=== PATIENT | male | born 1960 | race American Indian/Alaskan Native ===

== ENCOUNTER 2017-11-18 09:18 | Outpatient (CLI) | payer MEDICARE ==
--- NOTE | 2017-11-18 17:11 | XRay Report ---
FINAL REPORT EXAM: XR KNEE BILAT 3V HISTORY: KNEE PAIN TECHNIQUE: AP, tunnel, oblique, and lateral views of each knee PRIORS: None. FINDINGS: No acute fracture or dislocation is seen. The soft tissues demonstrate small suprapatellar joint effusions present bilaterally. Joint spaces are maintained and bony mineralization is normal. There are numerous sessile and pedunculated osteochondromas identified extending off of the distal femur, fibular head, and proximal tibia of both knees. The multiple osteochondromas demonstrate cortical medullary continuity. There is a broadening of the metadiaphysis of the distal femur and proximal tibia. 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 On the left, the largest off the posterior distal femur measuring 5.9 x 8.4 x 7.4 cm. On the right, the largest is the focus in the region of the fibular head and posterior proximal tibia measures 7.8 x 10.0 cm and is at least 9.3 cm in length. IMPRESSION: 1. no acute bony abnormality of either knee. 2. Numerous sessile and pedunculated osteochondromas around both knee joints. 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 Given the patient's knee pain, MRI may be helpful to evaluate the surrounding soft tissue structures, with regards to any vascular or nerve injury.
--- NOTE | 2017-11-18 17:55 | XRay Report ---
FINAL REPORT EXAM: XR SPINE LUMBOSACRAL 4+V HISTORY: BACK PAIN TECHNIQUE: AP, lateral, bilateral oblique, and coned-down views of the lumbar spine. Images also included a coned-down lateral view of the coccyx. PRIORS: None. FINDINGS: The vertebral body heights and disc spaces are well maintained. The alignment is normal. No evidence for spondylolysis or spondylolisthesis is seen. Pedicles are intact bilaterally at all levels. The paraspinal soft tissues are unremarkable. There are several osteochondromas extending off the pelvis including both iliac wings and the right acetabulum. The largest extends posteriorly off the right iliac wing measuring at least 12.2 x 18.9 cm. These findings suggest hereditary multiple exostoses (HME). IMPRESSION: 1. Negative lumbar spine. 2. Numerous osteochondromas extending off pelvis. The largest extends posteriorly off the right iliac wing. These findings suggest hereditary multiple exostoses (HME).
--- NOTE | 2017-11-18 18:02 | XRay Report ---
FINAL REPORT EXAM: XR HIPS BILAT 2V W/PELVIS HISTORY: HIP PAIN TECHNIQUE: AP view of the pelvis and a coned-down lateral view of each hip. PRIORS: X-ray pelvis 10/27/2011 FINDINGS: No evidence for acute fracture or dislocation is seen. Joint spaces are maintained. Bony mineralization is normal. Multiple enlarging osteochondromas/ exostoses are again noted. These involve the iliac crests bilaterally, right greater than left, right femoral neck, and lesser trochanter of the proximal left femur. The largest of these extends posteriorly off the right iliac wing. These have benign characteristics with no definite evidence for malignant transformation seen on these radiographs. However, MRI is recommended over any area of joint pain to assess the thickness of the cartilaginous cap. IMPRESSION: Multiple enlarging osteochondromas/ exostoses again noted off of the iliac crest and proximal femurs. Although these have a benign characteristic by x-ray, MRI is recommended over any area of joint pain.
== END 2017-11-18 09:19 | disposition home or self-care (01) ==
LOC: XRAY 09:18
PROVIDERS: ATTEND Family Medicine
DX: D16.8 Benign neoplasm of pelvic bones, sacrum and coccyx (principal); D16.22 Benign neoplasm of long bones of left lower limb; D16.21 Benign neoplasm of long bones of right lower limb; M25.551 Pain in right hip; M25.552 Pain in left hip; M25.461 Effusion, right knee; M25.462 Effusion, left knee; M54.5 Low back pain
CPT/HCPCS: 72110; 73521

== ENCOUNTER 2017-12-22 02:43 | Emergency (ER) | payer MEDICARE ==
[2017-12-22 04:04] VITALS: BP 127/88
[2017-12-22] MEDS ORDERED: MOTRIN PO ONE (05:13)
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
--- NOTE | 2017-12-22 05:32 | XRay Report ---
FINAL REPORT PROCEDURE: XR KNEE 3V LT TECHNIQUE: LEFT knee radiographs, AP, lateral and sunrise views. CPT 03898 HISTORY: trauma COMPARISON: 11/18/2017. FINDINGS: There is no acute fracture or malalignment. There is bony overgrowth of the femur, tibia and fibula similar to prior study consistent with osteochondromas. The appearance is similar to the prior study. Soft tissues are normal. There is no joint effusion. IMPRESSION: Stable appearance of the knee. Multiple exophytic osteochondromas are again noted. There is no fracture or malalignment..
== END 2017-12-22 05:57 | disposition home or self-care (01) ==
LOC: ED 02:43
DX: S86.812A Strain of other muscle(s) and tendon(s) at lower leg level, left leg, initial encounter (principal); F17.200 Nicotine dependence, unspecified, uncomplicated; F12.10 Cannabis abuse, uncomplicated; I10 Essential (primary) hypertension; Z86.73 Personal history of transient ischemic attack (TIA), and cerebral infarction without residual deficits; I25.2 Old myocardial infarction; I82.402 Acute embolism and thrombosis of unspecified deep veins of left lower extremity; M19.90 Unspecified osteoarthritis, unspecified site; Z88.5 Allergy status to narcotic agent; X58.XXXA Exposure to other specified factors, initial encounter; Y93.89 Activity, other specified; Y92.89 Other specified places as the place of occurrence of the external cause; Y99.8 Other external cause status